=== PATIENT | female | born 1990 | race Caucasian/White ===

== ENCOUNTER 2022-05-31 12:51 | Emergency (ER) | payer OTHER ==
[2022-05-31 12:58] VITALS: TEMP 98; BMI 38.9
[2022-05-31] MEDS ORDERED: ONDANSETRON 4 MG/2 ML VIAL IVPUSH ONE (13:18)
[2022-05-31] MEDS ORDERED: FAMOTIDINE 20 MG/50 ML IVPB 20 MG/50 ML MG IVPB ONE (13:18)
[2022-05-31] MEDS ORDERED: ACETAMINOPHEN 1000 MG/100 ML BAG IVPB ONE (13:18)
[2022-05-31] MEDS ORDERED: LACTATED RINGERS SOLUTION 1000 ML INFUS.BAG IV ONE ×2 (13:21→17:23)
[2022-05-31] MEDS ORDERED: ACETAMINOPHEN INJECTION 100 ML IVPB ONE (15:15)
[2022-05-31] MEDS ORDERED: KETOROLAC TROMETHAMINE 15 MG/ML VIAL IVPUSH ONE (15:31)
[2022-05-31] MEDS ORDERED: KETOROLAC TROMETHAMINE 15 MG/ML VIAL ONE (15:39)
[2022-05-31] MEDS ORDERED: morphine CARPU-JECT 4 MG/1 ML DISP.SYRIN IVPUSH ONE ×2 (16:14)
[2022-05-31] MEDS ORDERED: morphine SULFATE 4 MG/ML VIAL ONE (16:17)
[2022-05-31 16:26] LABS: CHLORIDE 108 mmol/L (98-107); SODIUM 135 mmol/L (136-145)
[2022-05-31 16:28] LABS: BLOOD UREA NITROGEN 12.1 mg/dL (7-18); CALCIUM 9.3 mg/dL (8.5-10.1)
[2022-05-31 16:29] LABS: ALBUMIN 3.8 g/dl (3.4-5.0); CO2 22 mmol/L (21-32); GLUCOSE,RANDOM 88 mg/dL (74-106)
[2022-05-31 16:31] LABS: CREATININE 1.2 mg/dL (0.55-1.3)
[2022-05-31 16:33] LABS: BILIRUBIN,TOTAL 1.6 mg/dL (0.2-1); TOT PROT 8.4 g/dl (6.4-8.2)
[2022-05-31 16:35] LABS: ALK PHOS 122 U/L (45-117)
[2022-05-31 16:39] LABS: ANION GAP 5 MMOL/L (8-16); LIPASE 21547 U/L (73-393); SGOT/AST 217 U/L (15-37); SGPT/ALT 365 U/L (13-61)
[2022-05-31 16:49] LABS: BASO % 0.2 % (0-2.0); EOS % 2.2 % (0-4.5); HEMATOCRIT 53.4 % (32.4-45.2); HEMOGLOBIN 16.9 GM/dL (10.7-15.3); LYMPH % 6.8 % (8-40); MCH 26.9 pg (25.7-33.7); MCHC 31.7 g/dl (32.0-36.0); MEAN CELL VOLUME 84.8 fl (80-96); MONO % 3.2 % (3.8-10.2); NEUT % 87.6 % (42.8-82.8); PLATELET COUNT 330 10^3/uL (134-434); RDW 14.3 % (11.6-15.6)
[2022-05-31] MEDS ORDERED: HYDROmorphone HCL CARPU-JECT 2 MG/1 ML DISP.SYRIN IVPUSH ONE (17:01)
[2022-05-31] MEDS ORDERED: HYDROmorphone HCl 2 MG/ML VIAL ONE (17:24)
[2022-05-31 17:53] LABS: EPI CELLS 23 /uL (0-25.1); HYALINE CASTS 3 /uL (0-3.1); URINE APPEARANCE CLEAR; URINE BACTERIA 741 /uL (0-1359); URINE BILIRUBIN 2+ (NEGATIVE); URINE COLOR DK YELLOW; URINE GLUCOSE (UA) NEGATIVE (NEGATIVE); URINE KETONE 1+ (NEGATIVE); URINE LEUK ESTERASE NEGATIVE (NEGATIVE); URINE NITRITE NEGATIVE (NEGATIVE); URINE PROTEIN 1+ (NEGATIVE); URINE UROBILINOGEN 0.2 mg/dL (0.2-1.0); URINE WBC 9 /uL (0-25.8)
[2022-05-31 17:57] VITALS: RESP 16
[2022-05-31 18:02] LABS: URINE RBC 29 /uL (0-23.9)
[2022-05-31] MEDS ORDERED: PIPERACILLIN/TAZOB 4.5 GM 4.5 GM in DEXTROSE 5%-WATER 100 ML IVPB ONE (18:59)
[2022-05-31] MEDS ORDERED: PIPERACILLIN/TAZOB 4.5 GM 4.5 GM/100 ML BAG IVPB ONE (19:38)
[2022-05-31 19:41] VITALS: BP 153/92
[2022-05-31 19:52] VITALS: PULSE 83
== END 2022-05-31 19:59 | disposition short-term general hospital (02) ==
LOC: JER 12:51
PROC: 3E0333Z Introduction of Anti-inflammatory into Peripheral Vein, Percutaneous Approach (ICD-10-PCS; principal; 2022-05-31)
PROC: 3E033NZ Introduction of Analgesics, Hypnotics, Sedatives into Peripheral Vein, Percutaneous Approach (ICD-10-PCS; 2022-05-31)
PROC: 3E0333Z Introduction of Anti-inflammatory into Peripheral Vein, Percutaneous Approach (ICD-10-PCS; 2022-05-31)
PROC: 3E033NZ Introduction of Analgesics, Hypnotics, Sedatives into Peripheral Vein, Percutaneous Approach (ICD-10-PCS; 2022-05-31)
DX: K80.81 Other cholelithiasis with obstruction (principal)
CPT/HCPCS: 0241U-QW; 36415; 76705-TC; 80053; 81003; 83690; 84703; 85025; 87086; 87186; 93005; 93010; 99285-25